=== PATIENT | male | born 2000 | race Hispanic/Latino ===

== ENCOUNTER 2023-03-26 21:48 | Emergency (ER) | payer OTHER, BC ==
[~2023-03-26] VITALS: Ht 152.4 cm; Wt 45.4 kg
[2023-03-26 21:48] VITALS: BP 153/66; PULSE 62; RESP 20; TEMP 97.6; O2SAT 97
[2023-03-26 22:18] VITALS: BP 146/72; PULSE 74; RESP 20; O2SAT 96
[2023-03-26 22:48] VITALS: BP 156/74; PULSE 82; RESP 20; O2SAT 98
[2023-03-26 23:18] VITALS: BP 128/74; PULSE 65; RESP 20; O2SAT 96
== END 2023-03-26 23:31 | disposition left against medical advice (07) ==
LOC: ER 21:48
DX: S01.111A Laceration without foreign body of right eyelid and periocular area, initial encounter (principal); S09.90XA Unspecified injury of head, initial encounter; F12.90 Cannabis use, unspecified, uncomplicated; V89.2XXA Person injured in unspecified motor-vehicle accident, traffic, initial encounter; Y93.89 Activity, other specified; Y92.410 Unspecified street and highway as the place of occurrence of the external cause; Y99.8 Other external cause status
CPT/HCPCS: 99283